=== PATIENT | female | born 1950 | race Caucasian/White ===

== ENCOUNTER 2017-01-30 15:28 | Emergency (ER) | payer MEDICARE, OTHER ==
[2017-01-30 17:19] VITALS: BP 167/95
--- NOTE | 2017-01-30 17:50 | EDM.PDOC ---
ED HPI HEADACHE COMPLAINT - General Chief Complaint: Headache Stated Complaint: HEART Time Seen by Provider: 01/30/17 16:37 Source: Reports: Patient History Limitations: Reports: No limitations - History of Present Illness INITIAL COMMENTS - FREE TEXT/NARRATIVE: this patient comes in with some vague complaints that started this afternoon after previously having a stress test here at the hospital. Her story begins with a naturopathic Dr. Mariama Chin. She said her to the [facility] in [place] where she was seen in the internal medicine clinic. She had been having some problems with fatigue and shortness of breath. He was also some family history of early coronary artery disease. She was set up to have a stress test which she had at our hospital today. I spoke with Dr. Lafleur who said the EKG part of her stress test was normal and the nuclear medicine part showed just a tiny fixed defect. The patient noted that a previous echocardiogram had showed a small area that didn't appear to be moving. She notes that she felt fine today although she got really tired during the stress test that didn't have much exercise tolerance. Dr. Lafleur also noted that. So she went home and she was weeding in her garden. She had to walk down a hill and up another 1 to get to the house and when she did she felt just a sudden fatigue all over. She also began having a headache. Her legs and arms felt heavy. She felt like she had very low energy. Because of this she had trouble walking to the car. While her was bringing her to the hospital she started singing because she thought if she was having a stroke she wouldn't be able to say but she did okay area her noted that her lips seemed to turn a little bit blue. This episode began at about 1454 today. The episode lasted about 15 or 20 minutes and went away when she got to the hospital. She also noted that occasionally she'll feel a little bit off balance or "disoriented". she notes that normally she has 3 or 4 large mugs of coffee every morning but this morning she just had a little bit so maybe that might be the cause of her headache. She eats an Davis type of diet. She said her food intake today seems to be similar to what it's been in the past. She notes a history of elevated cholesterol no history of diabetes no history of any type of blood clots no symptoms today of near syncope she's never had problems with a low blood sugar. - Related Data Allergies/ADRs: Allergies Allergy/AdvReac Type Severity Reaction Status Date / Time tetracycline Allergy Chest Pain Verified 09/04/15 21:51 thyme Allergy Hives Verified 09/04/15 21:52 [email or web address] Allergy Headache Uncoded 09/04/15 21:52 Home Meds: Home Meds Estradiol [Estring] 2 mg VAG ASDIRECTED 09/04/15 [History] Ascorbic Acid [Vitamin C] 5 tab PO DAILY 01/29/17 [History] Cholecalciferol (Vitamin D3) [Vitamin D3] 1 cap PO DAILY 01/29/17 [History] Cod Liver Oil 1 tsp PO DAILY 01/29/17 [History] Lutein 1 cap PO DAILY 01/29/17 [History] Multivitamin [Daily Mukesh] 1 tab PO DAILY 01/29/17 [History] Red Yeast Rice 1 cap PO DAILY 01/29/17 [History] Ubidecarenone [Coenzyme Q-10] 1 cap PO DAILY 01/29/17 [History] Past Medical History Other HEENT History: PLastic surgery on face for dog bite. Other Endocrine/Metabolic History: States pre diabetic Social & Family History - Tobacco Use Smoking Status *Q: Never Smoker Second Hand Smoke Exposure: Yes - Recreational Drug Use Recreational Drug Use: No ED ROS GENERAL - Review of Systems Review Of Systems: See Below Constitutional: Reports: malaise, fatigue HEENT: Reports: No symptoms Respiratory: Reports: Other (only as per HPI) Cardiovascular: Reports: No symptoms Endocrine: Reports: fatigue GI/Abdominal: Reports: No symptoms : Reports: no symptoms Musculoskeletal: Reports: other (see HPI) Skin: Reports: no symptoms Neurological: Reports: Dizziness (see HPI) Psychiatric: Reports: No symptoms Hematologic/Lymphatic: Reports: no symptoms Immunologic: Reports: no symptoms - Physical Exam Exam: See Below Exam Limited By: No limitations General Appearance: alert, no apparent distress, obese Eye Exam: bilateral eye: EOMI, PERRL Ears: normal external exam, normal TMs Nose: normal inspection Throat/Mouth: Normal inspection, Normal lips, Normal oropharynx Head Exam: atraumatic Neck: normal inspection, supple, non-tender Respiratory/Chest: no respiratory distress, lungs clear Cardiovascular: normal peripheral pulses, regular rate, rhythm GI/Abdominal: normal bowel sounds, soft, non tender Neuro Exam (Abbreviated): alert, oriented, CN II-XII intact, normal cognition, no motor/sensory deficits Back Exam: normal inspection Extremities: normal inspection Psychiatric: normal affect Skin Exam: Warm, Dry Course - Vital Signs Last Recorded V/S: Last Vital Signs Temp 37.1 C 01/30/17 15:49 Pulse 60 01/30/17 17:18 Resp 12 01/30/17 17:18 BP 167/95 H 01/30/17 17:18 Pulse Ox 99 01/30/17 17:18 - Orders/Labs/Meds Orders: Active Orders 24 hr Category Date Time Status EKG Documentation Completion [RC] ASDIRECTED Care 01/30/17 16:37 Active EKG 12 Lead [EK] Urgent Ther 01/30/17 16:37 Ordered Labs: Laboratory Tests 01/30/17 01/30/17 01/30/17 Range/Units 16:37 16:37 16:39 WBC 6.7 (4.5-11.0) K/uL RBC 4.81 (3.30-5.50) M/uL Hgb 13.8 (12.0-15.0) g/dL Hct 42.1 (36.0-48.0) % MCV 88 (80-98) fL MCH 29 (27-31) pg MCHC 33 (32-36) % Plt Count 197 (150-400) K/uL Neut % (Auto) 45 (36-66) % Lymph % (Auto) 43 (24-44) % Dickens % (Auto) 10 H (2-6) % Eos % (Auto) 1 L (2-4) % Baso % (Auto) 1 (0-1) % Sodium 149 H (140-148) mmol/L Potassium 4.3 (3.6-5.2) mmol/L Chloride 111 H (100-108) mmol/L Carbon Dioxide 30 (21-32) mmol/L Anion Gap 12.3 (5.0-14.0) mmol/L BUN 15 (7-18) mg/dL Creatinine 0.8 (0.6-1.0) mg/dL Est Cr Clr Drug Dosing 56.43 mL/min Estimated GFR (MDRD) > 60 (>60) Glucose 94 (74-106) mg/dL Calcium 8.4 L (8.5-10.1) mg/dL Total Bilirubin 1.0 D (0.2-1.0) mg/dL AST 17 (15-37) U/L ALT 29 (12-78) U/L Alkaline Phosphatase 65 (46-116) U/L Troponin I < 0.017 (0.000-0.056) ng/mL Total Protein 6.7 (6.4-8.2) g/dL Albumin 3.6 (3.4-5.0) g/dL Globulin 3.1 (2.3-3.5) g/dL Albumin/Globulin Ratio 1.2 (1.2-2.2) Urine Color Yellow Urine Appearance Clear Urine pH 7.0 (4.5-8.0) Ur Specific [place] 1.010 (1.008-1.030) Urine Protein Negative (NEGATIVE) mg/dL Urine Glucose (UA) Normal (NEGATIVE) mg/dL Urine Ketones 15 H (NEGATIVE) mg/dL Urine Occult Blood Negative (NEGATIVE) Urine Nitrite Negative (NEGATIVE) Urine Bilirubin Negative (NEGATIVE) Urine Urobilinogen Normal (NORMAL) mg/dL Ur Leukocyte Esterase Negative (NEGATIVE) Urine RBC 0-5 (0-5) Urine WBC Not seen (0-5) Ur Epithelial Cells Not seen Amorphous Sediment Not seen Urine Bacteria Not seen Urine Mucus Not seen - Re-Assessments/Exams Free Text/Narrative Re-Assessment/Exam: 01/30/17 17:51 an EKG shows a normal sinus rhythm at 63 beats per minute normal QRS normal ST and T waves. Free Text/Narrative Re-Assessment/Exam: 01/30/17 17:53my suspicion is that this lady might have become a little bit hypoglycemic today possibly because of a extra exercise and a stress test and maybe a little bit less oral intake. Her labs were reviewed her blood sugar and electrolytes all look normal. I do notice that she has a little bit of ketones in the urine which might go along with a hypoglycemic episode. 01/30/17 17:53 her troponin level is negative. That was drawn approximately 2 hours after her symptoms began. I don't think it is necessary to draw a repeat troponin. Departure - Departure Time of Disposition: 17:58 Disposition: Home, Self-Care 01 Condition: fair Clinical Impression: Hypoglycemia Forms: ED Department Discharge Additional Instructions: your symptoms suggest that blood might have dropped a little bit. There is just a touch ketones in the urine. The rest of your labs generally looked okay. Your EKG looked normal. Dr. Lafleur said that your stress test was normal although there was a little fixed defect that could represent some damage done to your heart a long time ago. I believe he mentioned something about that showing up on an echocardiogram. This nothing to worry about. just before you eat a regular diet. If you're going to be doing a lot of extra physical activity you may want to increase your caloric intake just a little bit. - My Orders Last 24 Hours: My Active Orders 01/30/17 16:37 EKG Documentation Completion [RC] ASDIRECTED EKG 12 Lead [EK] Urgent - Assessment/Plan Last 24 Hours: My Active Orders 01/30/17 16:37 EKG Documentation Completion [RC] ASDIRECTED EKG 12 Lead [EK] Urgent
== END 2017-01-30 18:16 | disposition home or self-care (01) ==
LOC: JP.ED 15:28
DX: E16.2 Hypoglycemia, unspecified (principal); Z79.899 Other long term (current) drug therapy; Z98.890 Other specified postprocedural states; Z88.1 Allergy status to other antibiotic agents; Z88.8 Allergy status to other drugs, medicaments and biological substances; R01.1 Cardiac murmur, unspecified; R06.02 Shortness of breath
CPT/HCPCS: 36415; 78452; 80053; 81001; 84484; 85025; 93005; 93017; 93018; 99285; A9500; 93010; 99283

== ENCOUNTER 2022-06-24 10:17 | Emergency (ER) | payer MEDICARE, OTHER ==
[2022-06-24 12:09] VITALS: BP 151/71; PULSE 69
[2022-06-24] MEDS ORDERED: cefTRIAXone 1 GM, Lidocaine 1% 2.1 ML IM ONE ×2 (12:11)
== END 2022-06-24 12:42 | disposition home or self-care (01) ==
LOC: JP.ED 10:17
DX: L03.116 Cellulitis of left lower limb (principal); L23.7 Allergic contact dermatitis due to plants, except food; I25.10 Atherosclerotic heart disease of native coronary artery without angina pectoris; E78.00 Pure hypercholesterolemia, unspecified; Z88.1 Allergy status to other antibiotic agents; Z88.8 Allergy status to other drugs, medicaments and biological substances; Z79.899 Other long term (current) drug therapy
CPT/HCPCS: 96372; 99283; J0696

== ENCOUNTER 2024-12-17 12:34 | Emergency (ER) | payer MEDICARE, OTHER ==
[2024-12-17] MEDS: Albuterol/Ipratropium 3.0-0.5 MG/3 ML Neb Soln NEB ONE (12:54)
[2024-12-17] MEDS: Ondansetron 4 MG/2 ML SDV IVPUSH ONE (12:54)
[2024-12-17] MEDS: Sodium Chloride 0.9% 1,000 ML IV ONE (12:54)
[2024-12-17 12:56] LABS: BASOPHILS ABSOLUTE AUTO 0.04 K/uL (0.00-0.10); BASOPHILS PERCENT AUTO 0.7 % (0.1-1.3); EOSINOPHILS ABSOLUTE AUTO 0.09 K/uL (0.00-0.40); EOSINOPHILS PERCENT AUTO 1.5 % (0.0-5.4); HEMATOCRIT 42.6 % (34.3-46.0); IMMATURE GRAN ABSOLUTE AUTO 0.02 K/uL (0.00-0.23); IMMATURE GRAN PERCENT AUTO 0.3 % (0.0-0.7); LYMPHOCYTES ABSOLUTE AUTO 1.38 K/uL (0.8-3.3); LYMPHOCYTES PERCENT AUTO 23.6 % (11.4-47.7); MEAN CORPUSCULAR HEMOGLOBIN 27.9 pg (31.6-35.5); MEAN CORPUSCULAR HGB CONC 32.9 g/dL (31.6-35.5); MEAN CORPUSCULAR VOLUME 84.9 fL (81.4-99.0); MONOCYTES PERCENT AUTO 13.7 % (3.3-12.6); NEUTROPHILS ABSOLUTE AUTO 3.51 K/uL (1.0-7.6); NEUTROPHILS PERCENT AUTO 60.2 % (40.0-78.1); PLATELET COUNT,PLT 188 K/uL (130-375); RED BLOOD CELL COUNT 5.02 M/uL (3.77-5.24); WHITE BLOOD CELL COUNT,WBC 5.8 K/uL (3.2-11.0)
[2024-12-17 13:16] LABS: A/G RATIO 1.1 (1.2-2.2); ALANINE AMINOTRANSFERASE,ALT 29 U/L (12-78); ALBUMIN 3.7 g/dL (3.4-5.0); ALKALINE PHOSPHATASE 75 U/L (46-116); ASPARTATE AMNIOTRANSFERASE,AST 20 U/L (15-37); BILIRUBIN TOTAL 1.4 mg/dL (0.2-1.0); BLOOD UREA NITROGEN,BUN 12 mg/dL (7-18); CALCIUM 8.6 mg/dL (8.5-10.1); CARBON DIOXIDE,CO2 28 mmol/L (21-32); CHLORIDE,CL 103 mmol/L (100-108); CREATININE 0.8 mg/dL (0.6-1.0); EST CRCL DRUG DOSING (CG) 50.26 mL/min; ESTIMATED GFR 77 mL/min (>60); GLUCOSE RANDOM 84 mg/dL (74-106); PROTEIN TOTAL,TP 7.1 g/dL (6.4-8.2); SODIUM,NA 140 mmol/L (140-148)
[2024-12-17] MEDS: Codeine/guaiFENesin 10-100 MG/5 ML Syrup 5 ML Cup PO ONE (13:39)
[2024-12-17 15:05] VITALS: BP 167/89; PULSE 80
== END 2024-12-17 15:12 | disposition home or self-care (01) ==
LOC: JP.ED 12:34
DX: J21.9 Acute bronchiolitis, unspecified (principal); I25.10 Atherosclerotic heart disease of native coronary artery without angina pectoris; Z90.710 Acquired absence of both cervix and uterus; Z79.899 Other long term (current) drug therapy; Z88.1 Allergy status to other antibiotic agents; Z91.09 Other allergy status, other than to drugs and biological substances
CPT/HCPCS: 36415; 71045; 71045-26; 80053; 85025; 85379; 87428-QW; 94640; 99285; A9270-GY; J2405; J7620